=== PATIENT | female | born 1990 | race Caucasian/White ===

== ENCOUNTER 2018-01-09 07:43 | Emergency (ER) | payer OTHER ==
[2018-01-09 08:11] LABS: AMORPHOUS SEDIMENT RFX SMALL (NEGATIVE); KETONE, URINE AUTO RFX NEGATIVE (NEGATIVE); MUCUS, URINE RFX SMALL (NEGATIVE); NITRITE, URINE AUTO RFX NEGATIVE (NEGATIVE); RBC, URINE AUTO RFX 8 /HPF (0-3); SPECIFIC GRAVITY UR AUTO RFX 1.027 (1.002-1.035); SQUAM EPITHELIAL CELL UR AURFX 11 /HPF (0-6); WBC, URINE AUTO RFX 9 /HPF (0-3)
[2018-01-09 08:12] LABS: CONTROL LINE UCG INT CTR LINE PRESENT; LEUKOCYTE ESTERASE UR AUTO RFX TRACE (NEGATIVE); URINE PREG TEST NEGATIVE (NEGATIVE)
== END 2018-01-09 08:36 | disposition home or self-care (01) ==
LOC: M ED 07:43
DX: N30.00 Acute cystitis without hematuria (principal); E66.9 Obesity, unspecified; Z87.440 Personal history of urinary (tract) infections; Z87.442 Personal history of urinary calculi; Z72.0 Tobacco use
CPT/HCPCS: 84703